=== PATIENT | male | born 1960 | race Caucasian/White ===

== ENCOUNTER → 2025-05-02 06:58 | Outpatient (REF) | payer MEDICARE, OTHER, SELFPAY | LOC: PAVMRI 06:58 | PROVIDERS: ATTENDING PHYSICIAN Student in an Organized Health Care Education/Training Program; FAMILY PHYSICIAN Nurse Practitioner | DX: M54.12 Radiculopathy, cervical region (principal); M54.2 Cervicalgia; M47.812 Spondylosis without myelopathy or radiculopathy, cervical region | CPT/HCPCS: 72141 ==

== ENCOUNTER → 2025-09-02 07:32 | Outpatient (REF) | payer MEDICARE, SELFPAY | LOC: HWRAD 07:32 | PROVIDERS: ATTENDING PHYSICIAN Orthopaedic Surgery Hand Surgery; FAMILY PHYSICIAN Internal Medicine | DX: Z96.9 Presence of functional implant, unspecified (principal); Z98.1 Arthrodesis status | CPT/HCPCS: 73200 ==